=== PATIENT | female | born 1985 | race Caucasian/White ===

== ENCOUNTER 2016-11-01 04:12 | Observation (INO) | payer BC ==
--- NOTE | ~2016-11-01 | OP ---
Record Of Operation [facility] [address] [place]. 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 PROCEDURE: 1. C6-7 total disk replacement. 2. Use of the microscope. SURGEON: Beth Calhoun M.D. FLUIDS: 1200 mL LR. ESTIMATED BLOOD LOSS: 15 mL. DRAINS: One drain. COMPLICATIONS: None. IMPLANTS: [employer]. PREOPERATIVE HISTORY: This is a very friendly 31-year-old female, who works as a nurse at [employer]. She has some neck pain, but predominantly left upper extremity complaints consistent with radiculopathy. She did have significant cord compression also on the MRI. We discussed the pros and cons of surgery. We discussed the risks and benefits as well as expected outcomes. We discussed the risks which include, but are not limited to difficulty swallowing, vocal cord paralysis, spinal cord injury, and a small chance of stroke and . DESCRIPTION OF PROCEDURE: After informed consent was obtained, the patient was brought to the operating room at her request, and general anesthesia was achieved. She was placed in the supine position and the neck was prepped and draped in a sterile fashion. The transverse incision was made on the right side and the retropharyngeal approach was performed. The proper level was radiographically confirmed. The rawhide trimmer retractors were placed underneath the longus colli muscles. The ET tube cuff was deflated and reinflated. Next, the [place] pins were placed into C6 and C7 and the microscope was brought into place. Under microscopic visualization, the diskectomy was completed with the pituitary rongeurs, Kerrison rongeurs, and the curettes. The high-speed bur was used to create parallel endplates according to the surgical technique for this Medtronic device. The posterolateral osteophytes were now removed. The rent in the posterior ligament was now taken down. The herniation was involving the right and left sides of the canal and through the nerve root origins. At this point, the extruded fragments were now removed. The foraminotomies were Record Of Operation [address] [address] NAME: RAOUL SANCHES : 83 STATUS : DIS Jose PAT#: [id number] AGE: 31 ADM/REG DATE : 11/01/16 MR#: [id number] REPORT SERV DATE: 11/04/16 DICTATED BY: BETH CALHOUN II DATE: 11/04/16 REPORT STATUS : Draft TRANSCRIBED BY: LEE DATE: 11/04/16 now carried out with the Kerrison rongeurs. The exiting nerve roots were now found to be well decompressed. At this point, the irrigation was performed. Hemostasis was achieved. Next, the trialing was now performed. The appropriate size Medtronic total disk replacement was now placed under fluoroscopic assistance following fluoroscopic trialing. Excellent fit was obtained. Radiographic confirmation did show proper placement of the implant. Hemostasis was achieved. However, secondary to our plan to keep her overnight for observation. I felt that a drain was reasonable to place. This was placed and standard closure performed, and the patient was then extubated, and transferred to PACU in stable condition. BEAN/LEE Beth Calhoun II, M.D. / [id number] CC: Spencer Santoyo II, [place]
[~2016-11-01 04:12] MED LIST: ANASPAZ0.125 MG PO; CYMBALTA20 PO; DIAMSEQ PO; KLOR-CON M2020 MEQ PO; L20 PO; L40 PO; LEVOTHYROXIN112 MCG PO; LOESTRIN F1 PO; LORTAB10 PO; PRENATABS RX PO; PROVHFA INH; SINGULAIR1 PO; ULTRAM50 PO; ZYRTEC ALLGY10 MG PO
[2016-11-02] MEDS ORDERED: V5 PO (10:44)
[2016-11-02] MEDS ORDERED: MEDROLPAK4 (10:44)
[2016-11-02] MEDS ORDERED: NORCO1 TA1 PO (10:44)
[2017-01-06] MEDS ORDERED: CELEXA20 PO (09:36)
[2017-01-06] MEDS ORDERED: MULTIVIT/MIN PO (09:36)
[2017-01-06] MEDS ORDERED: ACET500CAP PO (09:37)
[2017-01-06] MEDS ORDERED: ZYRTEC ALLGY10 MG PO (09:37)
[2017-01-06] MEDS ORDERED: CALCIUM + D OTC PO (09:37)
[2017-01-06] MEDS ORDERED: ADVIL PO (09:37)
[2017-01-06] MEDS ORDERED: LEVOTHYROXIN112 MCG PO (09:38)
[2017-01-06] MEDS ORDERED: PHENTERMINE37.5 M1 PO (09:41)
[2017-01-06] MEDS ORDERED: PROVHFA INH (09:42)
[2017-02-08] MEDS ORDERED: CALTRA600D PO (10:03)
== END 2016-11-02 14:18 | disposition home or self-care (01) ==
LOC: SDC 04:12 → SDC/OF 08:34 → 3SO 10:31
PROVIDERS: Orthopaedic Surgery
PROC: 01N10ZZ Release Cervical Nerve, Open Approach (ICD-10-PCS; 2016-11-01)
PROC: 0RB30ZZ Excision of Cervical Vertebral Disc, Open Approach (ICD-10-PCS; principal; 2016-11-01 05:30)
DX: M54.12 Radiculopathy, cervical region (principal); E03.9 Hypothyroidism, unspecified; F32.9 Major depressive disorder, single episode, unspecified; E66.9 Obesity, unspecified; Z68.41 Body mass index [BMI] 40.0-44.9, adult; Z88.5 Allergy status to narcotic agent; Z88.1 Allergy status to other antibiotic agents; Z91.09 Other allergy status, other than to drugs and biological substances; Z79.899 Other long term (current) drug therapy
CPT/HCPCS: 84703; 87641; 88304; 88311; 96374; 96375; 96376; A9270-GY; G0378; J0690; J1170; J2250; J2270; J2405; J2550; J2710; J3010